=== PATIENT | female | born 1955 | race Caucasian/White ===

== ENCOUNTER → 2016-10-06 | Outpatient (CLI) | payer BC | LOC: MAMO 09-27 15:20 | DX: Z12.31 Encounter for screening mammogram for malignant neoplasm of breast (principal) | CPT/HCPCS: G0202 ==

== ENCOUNTER → 2021-03-24 | Outpatient (CLI) | payer OTHER ==
[~2021-03-24] MED LIST: ASPIR 8181 MG PO; ASPIRIN EC81 MG PO; BLACK COHOSH540 MG PO; CIPRO500 MG PO; EVENING PRIMR1000 MG PO; EVISTA60 MG PO; HYDROCHLOROTHIA25 MG PO; LIPITOR TAB 1010 MG PO; VIT C PO; VIT D2 PO; VITAMIN C 500500 MG PO; VITAMIN D1000 UNIT PO; VOLTAREN100 GM TOP
== END ==
LOC: KOH-I 09:53
DX: Z87.891 Personal history of nicotine dependence (principal)
CPT/HCPCS: 71271

== ENCOUNTER → 2021-04-27 | Outpatient (CLI) | payer OTHER | LOC: MAMO 09:30 | DX: Z12.31 Encounter for screening mammogram for malignant neoplasm of breast (principal) | CPT/HCPCS: 77063; 77067 ==

== ENCOUNTER → 2022-03-25 | Outpatient (CLI) | payer OTHER | LOC: KOH-I 10:30 | DX: Z87.891 Personal history of nicotine dependence (principal) | CPT/HCPCS: 71271 ==

== ENCOUNTER → 2022-04-09 | Outpatient (CLI) | payer OTHER | LOC: LAB 10:30 | DX: J30.9 Allergic rhinitis, unspecified (principal); Z20.822 Contact with and (suspected) exposure to COVID-19 | CPT/HCPCS: U0002 ==